=== PATIENT | male | born 2000 | race Caucasian/White ===

== ENCOUNTER 2020-08-03 18:29 | Emergency (ER) | payer MEDICAID ==
[~2020-08-03] VITALS: Ht 190.5 cm; Wt 65.9 kg
[2020-08-03] MEDS ORDERED: iohexol 350MG/ML 100ml bottle IV ONE (19:32)
[2020-08-03 19:52] LABS: BASOPHILS # (AUTO) 0.1 X10'3 (0-0.2); BASOPHILS % (AUTO) 0.4 % (0-1); EOSINOPHILS # (AUTO) 0.1 X10'3 (0-0.9); EOSINOPHILS % (AUTO) 0.5 % (0-6); HEMATOCRIT 38.6 % (42.0-52.0); HEMOGLOBIN 12.8 g/dl (14.0-17.9); LYMPHOCYTES # (AUTO) 1.7 X10'3 (1.1-4.8); LYMPHOCYTES % (AUTO) 12.4 % (21-51); MEAN CORPUSCULAR HEMOGLOBIN 30.7 PG (27.0-31.0); MEAN CORPUSCULAR HGB CONC 33.1 g/dL (33.0-36.5); MEAN CORPUSCULAR VOLUME 92.5 FL (78-98); MONOCYTES # (AUTO) 1.5 X10'3 (0-0.9); MONOCYTES % (AUTO) 11.2 % (2-12); NEUTROPHILS # (AUTO) 10.2 X10'3 (1.8-7.7); NEUTROPHILS % (AUTO) 75.5 % (42-75); PLATELET COUNT 313 X10'3 (140-440); RED BLOOD COUNT 4.18 X10'6 (4.70-6.10); RED CELL DISTRIBUTION WIDTH 14.4 % (11.5-14.5); WHITE BLOOD COUNT 13.5 X10'3 (4.5-11.0)
[2020-08-03 20:06] LABS: ALANINE AMINOTRANSFERASE 23 U/L (12-78); ALKALINE PHOSPHATASE 77 IU/L (46-116); ANION GAP 10 (8-16); ASPARTATE AMINO TRANSFERASE 18 U/L (10-37); BILIRUBIN,TOTAL 1.4 MG/DL (0.1-1.0); BLOOD UREA NITROGEN 22 MG/DL (7-18); BUN/CREATININE RATIO 23.9 (5.4-32.0); C-REACTIVE PROTEIN 14.35 MG/DL (0.0-0.5); CALCIUM 8.7 MG/DL (8.5-10.1); CHLORIDE 101 MMOL/L (99-107); CREATININE 0.92 MG/DL (0.60-1.10); GLUCOSE 100 MG/DL (70-104); LACTATE DEHYDROGENASE 167 U/L (85-227); LIPASE 56 U/L (73-393); POTASSIUM 3.5 MMOL/L (3.5-5.1); SODIUM 138 MMOL/L (135-145); TOTAL CARBON DIOXIDE 27.2 MMOL/L (24-32); TOTAL PROTEIN 8.1 G/DL (6.4-8.2); eGFR > 90 ML/MIN
[2020-08-03] MEDS ORDERED: AMOX-422 PO (20:37)
[2020-08-03] MEDS ORDERED: AZIT-72 PO (20:37)
[2020-08-03] MEDS ORDERED: ALBU8HFA PO (20:37)
[2020-08-03] MEDS ORDERED: PRED20TA PO (22:29)
[2020-08-03 22:32] VITALS: BP 143/87
[2020-08-03] MEDS ORDERED: CefTRIAXone 250MG inj IM ONE (22:35)
--- NOTE | 2020-08-03 22:43 | NUR ---
pt left before shot could be given, pt was called to come back but no answer
== END 2020-08-03 22:39 | disposition home or self-care (01) ==
LOC: ER 18:29
DX: J18.1 Lobar pneumonia, unspecified organism (principal); Z20.828 Contact with and (suspected) exposure to other viral communicable diseases; F12.90 Cannabis use, unspecified, uncomplicated; Z72.89 Other problems related to lifestyle; Z87.891 Personal history of nicotine dependence; Z79.2 Long term (current) use of antibiotics; Z79.899 Other long term (current) drug therapy
CPT/HCPCS: 36415; 71045; 71275; 80053; 83615; 83690; 84145; 85025; 86140; 87635; 99285; C9803; Q9967

== ENCOUNTER 2020-08-07 07:55 | Emergency (ER) | payer MEDICAID ==
[~2020-08-07] VITALS: Ht 190.5 cm; Wt 65.9 kg
[~2020-08-07 07:55] MED LIST: ALBU8HFA PO; AMOX-422 PO; AZIT-72 PO; PRED20TA PO
--- NOTE | 2020-08-07 08:46 | NUR ---
PT WAS SEEN HERE 3 DAYS AGO AND WAS TOLD TO COME BACK IN 3 DAYS TO SEE IF MEDICATION WAS EFFECTIVE.
[2020-08-07 08:50] VITALS: BP 108/91
--- NOTE | 2020-08-07 09:34 | NUR ---
PT WAS SEEN AND TREATED PRIOR TO NURSE ASSESSMENT
== END 2020-08-07 09:34 | disposition home or self-care (01) ==
LOC: ER 07:56
DX: J18.9 Pneumonia, unspecified organism (principal); F12.10 Cannabis abuse, uncomplicated; Z00.01 Encounter for general adult medical examination with abnormal findings
CPT/HCPCS: 99281

== ENCOUNTER 2023-01-17 21:24 | Emergency (ER) | payer MEDICAID ==
[~2023-01-17] VITALS: Ht 190.5 cm; Wt 70.5 kg
[2023-01-17 21:32] VITALS: BP 108/75
[2023-01-17] MEDS ORDERED: acetaminophen 325mg tablet PO ONE (23:05)
[2023-01-17] MEDS ORDERED: normal saline 1000ML IV soln IVB ONE (23:05)
--- NOTE | 2023-01-18 00:08 | NUR ---
IV DC'D PT BEING DISCHARGED DRESSING APPLIED
== END 2023-01-18 00:09 | disposition home or self-care (01) ==
LOC: ER 21:26
DX: J06.9 Acute upper respiratory infection, unspecified (principal); Z20.822 Contact with and (suspected) exposure to COVID-19; F12.10 Cannabis abuse, uncomplicated
CPT/HCPCS: 71045; 87081; 87811; 87880; 96360; 99284; J7030